=== PATIENT | female | born 1935 | race American Indian/Alaskan Native ===

== ENCOUNTER 2017-08-02 14:16 | Outpatient (CLI) | payer MEDICARE ==
--- NOTE | 2017-08-02 14:56 | XRay Report ---
Right knee 4 views: He history: Osteoarthritis. Findings: No definite bony or articular abnormality. No fracture dislocation or soft tissue calcification. Operative vessel calcification was noted. Impression: No bony or articular abnormality right knee.
== END 2017-08-02 14:17 | disposition home or self-care (01) ==
LOC: SPVIMAG 14:16
PROVIDERS: ATTEND Internal Medicine
DX: M17.11 Unilateral primary osteoarthritis, right knee (principal)